=== PATIENT | male | born 1975 | race Caucasian/White ===

== ENCOUNTER 2023-05-10 12:45 | Outpatient (RCR) | payer BC, SELFPAY | END 2023-09-07 23:59 | disposition home or self-care (01) | PROVIDERS: PCP Family Medicine; Visit Provider Family Medicine | DX: M54.9 Dorsalgia, unspecified (principal); G89.29 Other chronic pain; M54.6 Pain in thoracic spine; Z51.89 Encounter for other specified aftercare | CPT/HCPCS: 97110; 97112; 97161 ==